=== PATIENT | male | born 1950 | race Native Hawaiian/Other Pacific Islander ===

== ENCOUNTER 2023-01-22 22:17 | Emergency (ER) | payer OTHER ==
[~2023-01-22] VITALS: Ht 152.4 cm; Wt 59.9 kg
[2023-01-22 22:29] VITALS: BP 184/82; TEMP 97.3
[2023-01-22 23:09] LABS: PLATELET COUNT 146 K/uL (142-355)
[2023-01-22 23:18] LABS: POTASSIUM 3.7 mmol/L (3.6-5.2)
[2023-01-23] MEDS ORDERED: HALO5INJ3 IM (07:15)
== END 2023-01-23 00:10 | disposition still patient (30) ==
LOC: ED 22:17
PROVIDERS: Emergency Medicine Emergency Medical Services
DX: R45.6 Violent behavior (principal); R45.1 Restlessness and agitation; Z02.79 Encounter for issue of other medical certificate
CPT/HCPCS: 36415; 80053; 85027; 87635; 93005; 96372; 99283; J1630; J2060; U0003

== ENCOUNTER 2023-04-09 21:49 | Emergency (ER) | payer OTHER ==
[~2023-04-09] VITALS: Ht 172.7 cm; Wt 61.2 kg
[~2023-04-09 21:49] MED LIST: ACET-206 PO; HALO5INJ3 IM; LORA0.5T17 PO; MAGNSUS68 PO; OLAN10INJ IM; OLAN10INJ INJ; OLANZAPINE5 MG PO; ZYPREXA ZYDI5 MG PO
[2023-04-09 21:50] VITALS: TEMP 98.2
[2023-04-09 22:33] LABS: PLATELET COUNT 136 K/uL (142-355)
[2023-04-09 22:36] LABS: POTASSIUM 3.2 mmol/L (3.6-5.2)
[2023-04-09 23:45] VITALS: BP 145/87
[2023-04-10] MEDS ORDERED: LORA0.5T17 PO (07:09)
[2023-04-10] MEDS ORDERED: TYLENOL325 MG PO (07:10)
[2023-04-23] MEDS ORDERED: LORA0.5T17 PO (11:34)
[2023-04-23] MEDS ORDERED: MAGNSUS68 PO (11:34)
[2023-04-23] MEDS ORDERED: ACET-206 PO (11:34)
[2023-04-23] MEDS ORDERED: OLANZAPINE5 MG PO (11:35)
[2023-04-23] MEDS ORDERED: OLAN10INJ IM (11:35)
== END 2023-04-09 23:45 ==
LOC: ED 21:49
PROVIDERS: Family Medicine
DX: R45.6 Violent behavior (principal); R45.1 Restlessness and agitation; Z02.79 Encounter for issue of other medical certificate
CPT/HCPCS: 80053; 85027; 87635; 93005; 99283; J3486; U0003